=== PATIENT | female | born 1990 ===

== ENCOUNTER 2025-03-12 09:57 | Outpatient (REF) | payer OTHER, SELFPAY ==
[2025-03-12 13:26] LABS: MANUAL DIFF FLAG NO
[2025-03-12 13:31] LABS: Appearance Urine Clear; Glucose Urine UA Negative (Negative); PH 6.0 (5.0-9.0); Specific Gravity - Urine >= 1.030 (1.005-1.025)
[2025-03-12 13:41] LABS: Hematocrit 36.0 % (37.0-47.0); Hemoglobin 11.3 g/dl (12.0-16.0); Imm Gran Abs Auto 0.01 X10*3/uL (0.00-0.03); Imm Gran Pct Auto 0.3 % (0.0-0.4); Lymphocytes Absolute Auto 1.1 X10*3/uL (1.2-4.9); Mean Corpuscular HGB Conc 31.4 g/dl (31.0-35.0); Mean Corpuscular Hemoglobin 26.0 pg (27.0-33.0); Mean Corpuscular Volume 82.9 fL (80.0-98.0); NRBC Abs Auto 0.000 X10*3/uL (0.0-0.012); NRBC Pct Auto 0.0 /100WBC (0.0-0.2); Platelet Count 190 X10*3/uL (160-400); Red Blood Count 4.34 X10*6/uL (4.20-5.50); White Blood Count 3.6 X10*3/uL (4.8-10.8)
[2025-03-12 14:56] LABS: Folate 7.5 ng/mL (> or = 4.0); Vitamin B12 451 pg/mL (200-900)
[2025-03-12 15:21] LABS: CT PCR Urine NOT DETECTED (Not Detect.); NG PCR Urine NOT DETECTED (Not Detect.)
[2025-03-12 18:30] LABS: Alanine Aminotransferase 15 U/L (0-31); Albumin Level 4.7 g/dL (3.5-5.0); Alkaline Phosphatase 60 U/L (39-117); Anion Gap 12 (12-20); Aspartate Amino Transferase 21 U/L (5-31); Blood Urea Nitrogen 12 mg/dL (9-16); Calcium 9.6 mg/dL (8.4-10.2); Carbon Dioxide 24 mmol/L (22-29); Chloride 107 mmol/L (96-108); Cholesterol 198 mg/dL (<200); Estimated Glomerular Filt Rate > 60; HDL Cholesterol 69 mg/dL (>40); Magnesium 1.8 mg/dL (1.6-2.6); Potassium 4.2 mmol/L (3.3-5.1); Sodium 139 mmol/L (135-145); Total Protein 7.2 g/dL (6.5-8.0); Triglycerides 53 mg/dL (<150)
[2025-03-13 05:54] LABS: HBS Num1 2.81 mIU/mL (0-7.99); HBsAGNum1 0.43 S/CO (0.00-0.99); HIV Num 1 0.06 S/CO (0.00-0.99); Hepatitis B Surface Antigen Negative (Negative); ~HepC Num1 0.16 S/CO (0.00-0.79); ~Hepatitis B Surface Antibody NONREACTIVE (Nonreactive); ~Hepatitis C Antibody Nonreactive (Nonreactive)
[2025-03-13 05:56] LABS: Syphilis Screen Nonreactive (Nonreactive)
[2025-03-16 17:58] LABS: VITAMIN D (1,25 OH) D3 50 pg/mL; Vit D (1,25-Dihydroxy) Total 50 pg/mL (18-72); Vitamin D (1,25 OH) D2 <8 pg/mL
== END 2025-03-12 09:58 | disposition home or self-care (01) ==
LOC: HO.HKASLDS 09:57
PROVIDERS: PCP Student in an Organized Health Care Education/Training Program; Visit Provider Student in an Organized Health Care Education/Training Program
DX: Z13.9 Encounter for screening, unspecified (principal); K59.00 Constipation, unspecified; E66.811 Obesity, class 1; Z98.890 Other specified postprocedural states; Z68.32 Body mass index [BMI] 32.0-32.9, adult
CPT/HCPCS: 80053; 80061; 81003; 82607; 82652; 82746; 83036; 83735; 84443; 85025; 86706; 86780; 86803; 87340; 87389; 87491; 87591

== ENCOUNTER 2025-03-12 09:57 | Outpatient (AMB) | payer OTHER, SELFPAY ==
--- OUTSIDE RECORDS SUMMARY | 2024-03-22 09:00 | XMS_ITS ---
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 Yes Have you ever had a Sexually transmitted disease ? No Tobacco use other than smoking: Question Answer Notes Are you an other tobacco user? No Encounters Encounter Location Date Provider Diagnosis [facility] [address] [id number] 03/22/2024 LEIGH ANN SMITH Plan Of Treatment No Information Progress Notes * ANTONINO MORALESDOB: 1990 (34 yo F)Acc No.[id number]:03/22/2024 Progress Notes Patient: ANTONINO WALL Provider: MARY VIDAL :1990 A ge:33 Y S ex:Female Date:03/22/2024 Address:[facility] FRANCISCA MCKEON, T [address] [place] [address] Subjective: * Chief Complaints: * 1 . ANNUAL VISIT. * Medical History: M edical History Verified. * Emergency Response Coordinator History: A bnormal menstruations D enies. A bnormal pap smear D enies. B irth control?None. C olonoscopy D enies. C yst D enies. D exa Scan D enies. D ysmenorrhea D enies. D yspareunia D enies. F ibroids D enies. H ysterectomy Denies. L ast pap smear date * - Normal Pap Smear. P eriods: L MP. S exual activity c urrently sexually active. S exually Transmitted Diseases (STDs) N one. * Family History: F ather: alive. M other: alive. Denies any fam hx of Ovarian,Colon or Breast Ca . * Social History: T obacco Use: T obacco use other than smoking A re you an other tobacco user? N o. S ocial: S ocial Hx T obacco Use D enies, A lcohol Use D enies, D rug Use D enies, P ersonal P t admits feeling safe in current environment, Pt denies feeling down/depressed/hopeless. S exual History: S exual History H ad sex in the past 12 months (vaginal, oral, or anal)? Y es, H ave you ever had a Sexually transmitted disease? N o. D etails of Sexual History A re you sexually active? Y es, A re you having any sexual problems? N o, H ave you had any sexually transmitted diseases (STDs)? N o, H ow many sexual partners have you had? 1 .? D rugs/Alcohol: D rugs H ave you used drugs other than those for medical reasons in the past 12 months??No. C affeine I ntake: 1 -2 cups per day. D o you smoke marijuana?: Denies. Do you drink alcohol?: Socially. * Medications: N one * Allergies: N .K.D.A. Objective: * Vitals: Assessment: Plan: * Treatment: * Images: * Electronic signature of TREVER SMITH NP on 03/12/2025 at 11:39 AM EST Sign off status: Pending * Provider: MARY VIDAL Date: 05/23/2023 Generated for Balwinder sarabia/Samaria/Savage on: 05/13/2024 11:39 AM EST
--- NOTE | 2025-03-12 10:00 | A.OFFPC_ITS ---
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 [place] Sewer Required: No Accompanied by: Self / Same As Patient Allergies No Known Allergies Allergy (Verified 03/12/25 10:04) Medication List - Last Reconciled 03/12/25 by Gus Parikh MD polyethylene glycol 3350 17 grams PO BID Tobacco use date assessed: 03/12/25 Dental Screening Dental Screen Date: 03/12/25 Did you have a dental visit in the last 12 months?: Yes Did you have a dental problem in the last 6 months where you did not have access to dental care?: No Was dental information given to patient?: Patient has dentist HPI HPI Comments History of Present Illness Details History of Present Illness The patient is a 34-year-old female presenting for a new patient visit Health Maintenance: The patient has no significant past medical history, takes no medications, and has no known allergies. She denies any history of smoking or illicit drug use. Her menses are regular, with menarche at age 14 or 15, and she does not use control. She had a Pap smear this year in [place]. Constipation: The patient reports experiencing constipation and is not currently using any treatment for it. History of abdominoplasty: The patient reports having an abdominoplasty in 2022. Surgical History: - Abdominoplasty in 2022 Medications: - The patient does not take any medicati ons. 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 - Family Status: The patient has 2 child bennett and 2 foster children. - Substance Use: She denies smoking or u sing illicit drugs. Family History: - Not discussed. Diagnostic Results: - Pap smear: A Pap smear was performed [facility] this year; results were not discussed. Past Medical History - The patient reports no significant pas t medical history. - She denies any prior hospitalizations. - She reports no known drug allergies. Health Maintenance - The patient is a new patient establish [facility] care with an annual physical exam. - Comprehensive lab work was ordered, in cluding a CBC, CMP, HbA1c, lipid panel, thyroid panel, magnesium, vitamin B12, folate, vitamin D, and urinalysis. - Screening for hepatitis B, hepatitis C , and HIV was ordered. - Screening for chlamydia, gonorrhea, an d syphilis was ordered as the patient is sexually active. - The patient had a Pap smear in the ren year. [facility] Medical History (Updated 03/12/25 @ 10:28 by Gus Parikh MD) Class 1 obesity Constipation Surgical History (Updated 03/12/25 @ 10:28 by Gus Parikh MD) History of abdominoplasty History of appendectomy History of delivery Family History (Updated 03/12/25 @ 10:07 by Mark Anthony Light CMA) Paternal Grandmother Diabetes Paternal Uncle Cancer Social History (Updated 03/12/25 @ 10:08 by Mark Anthony Light CMA) Housing: House Alcohol intake: current Comment: ocasionaly Patient Tobacco Use Status: Never used Tobacco e-Cigarette/Vaping Use: Never Used Second Hand Smoke Exposure: No service: No Current occupational status: employed 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 1. Little interest or pleasure in doing things: not at all 2. Feeling down, depressed, or hopeless: not at all 3. Trouble falling or staying asleep, or sleeping too much: not at all 4. Feeling tired or having little energy: not at all 5. Poor appetite or overeating: not at all 6. Feeling bad about yourself - or that you are a failure or have let yourself or your family down: not at all 7. Trouble concentrating on things, such as reading the newspaper or watching television: not at all 8. Moving or speaking so slowly that other people could have noticed. Or the opposite - being so fidgety or restless that you have been moving around a lot more than usual: not at all 9. Thoughts that you would be better off or of hurting yourself in some way: not at all Total score: 0 Depression Screening Interpretation: Negative Depression Screening Done: Yes [id number] - PHQ-9 Billing: Yes Source: Developed by Drs. Quinton Demarco, Dino Hendrickson and colleagues, with an educational keo from [employer]. Thrive Questionnaire Date Thrive assessed: 03/12/25 I am a: Patient What is your living situation today?: I have a steady place to live Within the past 12 months, did the food you bought not last and you didn't have the money to get more?: Never true Within the past 12 months, did you worry whether your food would run out before you got money to buy more?: Never true Do you have trouble paying for medicines?: No Do you have trouble getting transportation to medical appointments?: No Do you have trouble paying your heating and electricity bill?: No Do you have trouble taking care of your child, family member or friend?: No Do you have trouble with day-to-day activities such as bathing, preparing meals, shopping, managing finances, etc.?: No Are you currently unemployed and looking for a job?: No Are you interested in more education?: Yes Please select the resources that you would like help with: None Currently or been in a relationship where the following occur: No concerns reported THRIVE Score: 0 AUDIT C Alcohol Use Questionnaire (AUDIT-C) 3. How often do you have six or more drinks on one occasion?: Monthly Total Score: 2 ZULEYMA-7 AMB Questionnaire ZULEYMA-7 Date ZULEYMA - 7 assessed: 03/12/25 Feeling nervous, anxious, or on edge: 3 = Nearly every day Not being able to stop or control worryin = Not at all Worrying too much about different things: 0 = Not at all Trouble relaxin = Not at all Being so restless that it is hard to sit still: 0 = Not at all Becoming easily annoyed or irritable: 0 = Not at all Feeling afraid as if something awful might happen: 0 = Not at all Total ZULEYMA-7 score (0-4 normal; 5-9 mild; 10-14 moderate; 15-21 severe): 3 Source: Developed by Drs. Quinton Demarco, Dino Hendrickson and colleagues, with an educational keo from [employer]. ZULEYMA-7 Assessment Billing ZULEYMA-7 Assessment Tool: ZULEYMA-7 Assessment 60062 Review of Systems Narrative Review of Systems - Constitutional: Denies any specific concerns. - Gastrointestinal: Reports constipation. - Genitourinary: Reports regular menstruation. - Neurological/Psychiatric: Reports sleeping well. 10-point ROS reviewed and negative except as noted in HPI Physical exam (Primary Care) Tobacco/Smoking Status: Tobacco use Status Patient Tobacco Use Status Never used Tobacco 03/12/25 10:08 PHQ-9: PHQ-9 Score PHQ-9: Total score 0 03/12/25 10:03 Depression Screening Interpretation: Negative Thrive Assessment: Date of Thrive Assessment Date Thrive assessed 03/12/25 03/12/25 10:03 Currently or been in a relationship where the following occur: No concerns reported Narrative Physical Exam General: Well-appearing, in no acute distress. Vital signs: Within normal limits. HEENT: Normocephalic, atraumatic. PERRLA, EOMI. Conjunctiva clear, sclera anicteric. Oropharynx clear, mucous membranes moist. TMs intact bilaterally. Neck: Supple, no lymphadenopathy, no thyromegaly, no JVD or carotid bruits. Cardiovascular: RRR, normal S1/S2, no murmurs, rubs, or gallops. Peripheral pulses 2+ and symmetric. No edema. Respiratory: Lungs clear to auscultation bilaterally, no wheezes, rales, or r honchi. Normal effort. Abdomen: Soft, non-tender, non-distended. Normoactive bowel sounds. No hepatosplenomegaly, no masses. MSK: Full range of motion, no joint swelling or deformity. Normal gait. Skin: Warm, dry, intact. No rashes, lesions, or pallor. Neuro: Alert and oriented x3. Cranial nerves II-XII intact. Strength 5/5 throughout. Sensation intact. Reflexes 2+ symmetric. Normal coordination and gait. Psych: Appropriate mood and affect. Normal judgment and insight. Coding Level of Care Code New Pt Level 4 (39906) Diagnoses Constipation K59.00 History of abdominoplasty Z98.890 Class 1 obesity E66.811 Additional Codes ZULEYMA-7 Assessment Billing - ZULEYMA-7 Assessment Tool: ZULEYMA-7 Assessment 24968 ([id number]) PHQ-9 - 00002 - PHQ-9 Billing: Yes ([id number]) Assessment & Plan Assessment & Plan (1) Constipation: Code(s): K59.00 - Constipation, unspecified Category: Medical (2) History of abdominoplasty: Code(s): Z98.890 - Other specified postprocedural states Category: Medical (3) Class 1 obesity: Code(s): E66.811 - Obesity, class 1 Category: Medical Plan Consent The patient provided verbal consent for screening for chlamydia, gonorrhea, and syphilis. Patient was informed and verbally consented to the use of an ambient scribe for clinic note documentation during this visit. Plan 1. check up - Comprehensive laboratory studies will be obtained, including a complete blood count, comprehensive metabolic panel, hemoglobin A1c, lipid panel, thyroid panel, magnesium, vitamin B12, folate, vitamin D, and a urinalysis. - Screening for infectious diseases including Hepatitis B, Hepatitis C, and HIV was ordered. - As the patient is sexually active, screening for chlamydia, gonorrhea, and syphilis was ordered. - A follow-up appointment is scheduled in 2 weeks to discuss the results. 2. Constipation - The patient was advised to start taking MiraLAX. - She was instructed to take it at night and in the morning until she becomes regular, at which point she can reduce the dose to once at night. Discussion Notes I explained to the patient that since this was our first visit, we would conduct a comprehensive physical exam and order baseline labs. I reviewed the list of labs to be drawn, which included screening for common chronic conditions and infectious diseases. We discussed screening for sexually transmitted infections, and she provided consent. For her constipation, I recommended starting MiraLAX with instructions for dosage. We will have a follow-up visit in two weeks to review all results and address any abnormalities. Patient Instructions - For constipation, take MiraLAX at night and in the morning until your bowel movements become regular, then you can reduce it to only at nighttime. - You will have your blood drawn today for a number of screening tests. - Please schedule a follow-up appointment in two weeks to go over your lab results. Medical Decision Making The patient is a 34-year-old female establishing care for a wellness visit. She has no significant past medical history and takes no medications, with a chief complaint of constipation. Her physical exam was unremarkable. The plan focuses on establishing baseline health metrics and addressing her symptomatic complaint. Comprehensive labs were ordered for age-appropriate screening, covering metabolic, hematologic, endocrine, and infectious disease parameters. Given she is sexually active, STI screening was indicated and accepted. For constipation, MiraLAX was recommended as a safe, first-line osmotic laxative. Follow-up in two weeks is necessary to review lab findings and make further recommendations. Total Time Statement 30 min Total time spent caring for the patient today includes pre-visit chart review, documentation, review of laboratory and diagnostic imaging results, medication reconciliation, medically necessary evaluation, counseling on diagnoses, care coordination, ordering appropriate tests and medications, review of tests performed by other providers, reporting test results to the patient, and communication with other healthcare providers. Orders: Orders Comprehensive Met. Panel Today Z13.9 - Encounter for screening, unspecified Hepatitis C Antibody Today Z13.9 - Encounter for screening, unspecified TSH reflex Free T4 Today Z13.9 - Encounter for screening, unspecified HIV Ab/Ag Today Z13.9 - Encounter for screening, unspecified UA CC w/rflx Micro + Cult Today Z13.9 - Encounter for screening, unspecified Lipid Panel Today Z13.9 - Encounter for screening, unspecified Vitamin B12 and Folate Today Z13.9 - Encounter for screening, unspecified Hemoglobin A1c Today Z13.9 - Encounter for screening, unspecified Magnesium Today Z13.9 - Encounter for screening, unspecified Vitamin D 1,25 dihydroxy Today Z13.9 - Encounter for screening, unspecified Complete Blood Count Auto Diff Today Z13.9 - Encounter for screening, unspecified Hepatitis B Surface Antigen Today Z13.9 - Encounter for screening, unspecified Syphilis Screen Today Z13.9 - Encounter for screening, unspecified CT NG by PCR Urine Today Z13.9 - Encounter for screening, unspecified Hepatitis B Surface Antibody Today Z13.9 - Encounter for screening, unspecified Medications: New polyethylene glycol 3350 17 grams PO BID 30 ea 0RF K59.00 - Constipation, unspecified
[2025-03-12 10:08] VITALS: BP 108/53; PULSE 85; RESP 17; TEMP 36.4; O2SAT 100; BMI 32.1
== END 2025-03-12 10:31 | disposition home or self-care (01) ==
LOC: HO.HMCFMS 09:58
PROVIDERS: PCP Internal Medicine; Visit Provider Student in an Organized Health Care Education/Training Program
DX: K59.00 Constipation, unspecified (principal); Z98.890 Other specified postprocedural states; E66.811 Obesity, class 1